=== PATIENT | female | born 1960 | race Asian ===

== ENCOUNTER 2018-04-25 17:48 | Emergency (ER) | payer OTHER ==
[~2018-04-25] VITALS: Ht 154.9 cm; Wt 86.2 kg
[~2018-04-25 17:48] MED LIST: ATEN-41 PO; GLU500 PO; SIMV40TA5 PO
[2018-04-25 17:57] VITALS: BP_SYST 164
[2018-04-25] MEDS ORDERED: DIPH-TET-PERTUS Vaccine 0.5 ML VIAL (ADACEL) IM ONE (18:45)
[2018-04-25] MEDS ORDERED: HYDROcodone/ACETAMIN 5-325 MG TAB (NORCO/ VICODIN) PO ONE (18:45)
[2018-04-25] MEDS ORDERED: IBUPROFEN 800 MG TABLET PO ONE (18:45)
[2018-04-25 20:11] VITALS: BP_SYST 159
[2018-04-25] MEDS ORDERED: BACITRACIN 1 GM OINT TP ONE (20:12)
== END 2018-04-25 20:11 | disposition home or self-care (01) ==
LOC: SED 17:48
DX: S80.02XA Contusion of left knee, initial encounter (principal); S00.83XA Contusion of other part of head, initial encounter; E78.5 Hyperlipidemia, unspecified; R03.0 Elevated blood-pressure reading, without diagnosis of hypertension; E11.9 Type 2 diabetes mellitus without complications; Z85.3 Personal history of malignant neoplasm of breast; Z88.1 Allergy status to other antibiotic agents; Z79.899 Other long term (current) drug therapy; W01.0XXA Fall on same level from slipping, tripping and stumbling without subsequent striking against object, initial encounter; Y93.89 Activity, other specified; Y92.481 Parking lot as the place of occurrence of the external cause; Y99.8 Other external cause status
CPT/HCPCS: 70450-TC; 70486-TC; 73564; 90715; 99284

== ENCOUNTER 2023-06-15 14:10 | Emergency (ER) | payer OTHER, MEDICAID ==
[~2023-06-15] VITALS: Ht 154.9 cm; Wt 86.2 kg
[2023-06-15 14:10] VITALS: BP_SYST 143; PULSE 74; RESP 18; TEMP 97.5; O2SAT 96
[~2023-06-15 14:10] MED LIST changes: +SIMV-46 PO; -SIMV40TA5 PO
[2023-06-15] MEDS: KETOROLAC TROMETHAMINE 30 MG VIAL IM ONE (15:30)
[2023-06-15] MEDS ORDERED: TRAM50TA2 PO (16:30)
[2023-06-15] MEDS ORDERED: ACET-2634 PO (16:30)
[2023-06-15 17:50] VITALS: BP_SYST 143; PULSE 74; RESP 18; TEMP 97.5; O2SAT 96
== END 2023-06-15 17:52 | disposition home or self-care (01) ==
LOC: SED 14:10
DX: K43.9 Ventral hernia without obstruction or gangrene (principal); M79.18 Myalgia, other site; E11.9 Type 2 diabetes mellitus without complications; Z85.3 Personal history of malignant neoplasm of breast; Z88.1 Allergy status to other antibiotic agents; Z79.899 Other long term (current) drug therapy
CPT/HCPCS: 99285; 72192; 96372; J1885